=== PATIENT | male | born 1950 | race Caucasian/White ===

== ENCOUNTER 2024-03-13 12:27 | Day surgery (SDC) | payer MEDICARE, BC ==
[~2024-03-13] VITALS: Ht 180.3 cm; Wt 83.3 kg
[~2024-03-13 12:27] MED LIST: AMLODIPINE BESYL5 MG PO; Balanced Salt Epinephrine Irrigation Solution 500 mL IR SCH; Lidocaine HCl/Pf 1% 5 ML VIAL XX SCH; Moxifloxacin HCL 0.5 MG/0.1 ML 0.4MLSYR LEFTEYE SCH; PHENYLEPHRINE\\TROPICAMIDE\\TETRACAINE OPHTHALMIC DILATING SOLN LEFTEYE PRN; PLAVIX75 MG PO; Povidone-Iodine 450 DROP/30 ML Solution LEFTEYE SCH; ROSUVASTATIN CA20 MG PO; TAMSULOSIN HCL0.4 M1 PO
[2024-03-13] MEDS ORDERED: Midazolam HCl 1MG / ML 2ML Vial ONE (12:49)
[2024-03-13] MEDS ORDERED: Tetracaine HCl 0.5% Opth Soln 15 ml XX ONE (13:40)
[2024-03-13] MEDS ORDERED: HydrALAZINE HCl 20 MG / ML 1ML Vial ONE (13:42)
[2024-03-13 14:06] VITALS: BP 137/72
== END 2024-03-13 14:21 | disposition home or self-care (01) ==
LOC: ORSCSDS 12:27
PROVIDERS: Student in an Organized Health Care Education/Training Program
PROC: 08RK3JZ Replacement of Left Lens with Synthetic Substitute, Percutaneous Approach (ICD-10-PCS; principal; 2024-03-13 14:00)
DX: H25.812 Combined forms of age-related cataract, left eye (principal); Z96.1 Presence of intraocular lens; D65 Disseminated intravascular coagulation [defibrination syndrome]; I10 Essential (primary) hypertension; E78.00 Pure hypercholesterolemia, unspecified; E78.5 Hyperlipidemia, unspecified; Z79.02 Long term (current) use of antithrombotics/antiplatelets; Z79.899 Other long term (current) drug therapy
CPT/HCPCS: J0360; J2250; V2632